=== PATIENT | female | born 1950 | race Caucasian/White ===

== ENCOUNTER 2017-04-16 16:39 | Emergency (ER) | payer MEDICARE, OTHER ==
--- NOTE | 2017-04-16 17:01 | ED.REPORT ---
HPI-Cardiac Arrest Date of Service Apr 16, 2017 ED Provider: Efren Dowell MD Pt is a 67 year old female presenting to the ED via [email or web address] after falling 70 feet off a ki while hiking. Search and rescue started CPR 20 minutes after the accident and performed it for 40 minutes before the navy arrived. The navy did CPR en route in the aircraft. The pt arrives to the ED unresponsive after time of was called at 1632 en route. Nursing Notes Stated Complaint: CPR IN PROGRESS Chief Complaint: 70 foot fall Nursing Notes Reviewed: Yes General Time Seen by Provider: 16:45 Chief Complaint Other (70 foot fall) Down Time Prior to EMS: 1 - 20 min Total Time Arrest to Arrival: 41 - 60 min Hx Obtained From: EMS Arrived By: Helicopter Onset Occurred: 46 - 59 minutes ago Context of Onset: Fall from height (70 feet) Symptom Duration: Since onset Progression Since Onset: Constant Recent Healthcare: No recent doctor visit, No recent hospitalization Similar Sx Previous: No Past Medical History Past Medical History unknown Past Surgical History Right knee surgery Smoking History Unknown if Ever Smoker Ambulatory Status Independent Review of Systems Unable to Obtain ROS Patient condition Physical Exam Nursing notes reviewed. Constitutional: Elderly female with an obvious facial trauma. Skin: Ecchymosis right eye. Scattered abrasions around scalp. Laceration left side of scalp and puncture wound to frontal scalp on the top. Skin cool and moddled. Scattered abrasions to left knee. Ecchymosis to dorsal aspect of left hand. Cardiovascular: No cardiac activity on bedside ultrasound. Head/Eyes: Pupils fixed and dilated. Abdomen: Soft, no masses. Lower Extremities: Obvious deformity left ankle. Neuro: GCS3. Respiratory: No breath sounds. Psychiatric: Unable to assess 2/2 patient condition Initial Vital Signs No vital signs available. Pt prior to arrival. Re-Eval/Medical Decision Med Decision/Clinical Course 66-year-old female presenting to the ED after being involved in an apparent fall while hiking earlier today. She was pronounced in the helicopter prior to arrival in the emergency department. She has no signs of life here, no cardiac activity on ultrasound, pupils fixed and dilated. Given that patient was pronounced prior to her arrival, no further intervention was performed here. I discussed what I knew about the patient's status and the events surrounding her with her family, both on the phone and in person here in the ED. Re-Evaluation/Progress #1: Time of Eval: 16:53 Re-Evaluation/Progress #2: Time of Eval: 17:38 Re-Evaluation/Progress Note: Spoke to the patient's family. Discharge & Departure Impression: Primary Impression: Additional Impression: Traumatic cardiac arrest Disposition: Condition: Scribbrendan Attestation Portions of this note were transcribed by Josy Moncada. I, Dr. Dowell personally performed the history, physical exam and medical decision-making; I reviewed and confirmed the accuracy of the information in the transcribed note. Signed by: Isauro Simpson, 04/16/2017 at 1800. Efren Dowell MD Apr 16, 2017 17:01 JOSY MONCADA Apr 16, 2017 17:22
== END 2017-04-16 20:45 | disposition expired ==
LOC: EDBD 16:39 → SED 16:39
DX: I46.9 Cardiac arrest, cause unspecified; W17.89XA Other fall from one level to another, initial encounter; Y92.9 Unspecified place or not applicable; Y93.01 Activity, walking, marching and hiking; Y99.8 Other external cause status; R40.2430 Glasgow coma scale score 3-8, unspecified time